=== PATIENT | male | born 1970 | race American Indian/Alaskan Native ===

== ENCOUNTER 2016-09-26 23:11 | Emergency (ER) | payer BC ==
--- NOTE | 2016-09-27 00:10 | ED PDOC ---
Arrival/HPI - General Historian: Patient - History of Present Illness Time/Duration: 4-6 hours Symptom Onset: Sudden Symptom Course: Worsening Context: Home <Sandy Crawford - Last Filed: 09/27/16 02:04> <Fili Gavin - Last Filed: 09/28/16 04:44> - General Time Seen by Provider: 09/26/16 23:55 - History of Present Illness Narrative History of Present Illness (Text): 09/27/16 00:08 46 year old male with no significant past medical history presents for left foot trauma that occurred about 7 hours ago. Patient states that a bunch of people fell on his foot. He was able to walk on foot at first, but now is unable to bear weight on foot. Patient also complains of slight swelling in the foot. (Sandy Crawford) Past Medical History - Provider Review Nursing Documentation Reviewed: Yes - Travel History Have you recently traveled outside [place] w/in the past 3 mons?: No <Sandy Crawford - Last Filed: 09/27/16 02:04> Family/Social History - Physician Review Nursing Documentation Reviewed: Yes Family/Social History: Unknown Family HX <Sandy Crawford - Last Filed: 09/27/16 02:04> Allergies/Home Meds <Sandy Crawford - Last Filed: 09/27/16 02:04> <Fili Gavin - Last Filed: 09/28/16 04:44> Allergies/Adverse Reactions: Allergies shellfish derived Allergy (Verified 09/27/16 00:06) ANAPHYLAXIS Review of Systems - Review of Systems Constitutional: Normal. absent: Fatigue, Fevers Eyes: Normal. absent: Vision Changes ENT: Normal. absent: Hearing Changes, Sore Throat, Rhinorrhea Respiratory: Normal. absent: SOB, Cough, Sputum, Wheezing Cardiovascular: Normal. absent: Chest Pain, Edema, Calf Pain Gastrointestinal: Normal. absent: Abdominal Pain, Constipation, Diarrhea, Nausea, Vomiting Genitourinary Male: Normal. absent: Dysuria, Frequency Musculoskeletal: Arthralgias (left foot pain ). absent: Back Pain Skin: Normal. absent: Rash, Pruritis, Skin Lesions, Laceration Neurological: Normal. absent: Headache, Dizziness Endocrine: Normal. absent: Diaphoresis, Polyuria Hemo/Lymphatic: Normal. absent: Adenopathy Psychiatric: Normal. absent: Anxiety, Depression <Sandy Crawford - Last Filed: 09/27/16 02:04> Physical Exam Appearance: Positive for: Well-Appearing, Non-Toxic, Comfortable Pain Distress: Mild Mental Status: Positive for: Alert and Oriented X 3 - Systems Exam Head: Present: Atraumatic, Normocephalic Mouth: Present: Moist Mucous Membranes Respiratory/Chest: Present: Clear to Auscultation, Good Air Exchange. No: Respiratory Distress, Accessory Muscle Use, Wheezes, Rales, Rhonchi Cardiovascular: Present: Regular Rate and Rhythm, Normal S1, S2. No: Murmurs, Rub, Gallop, Muffled Abdomen: Present: Normal Bowel Sounds. No: Tenderness, Distention, Peritoneal Signs Lower Extremity: Present: NORMAL PULSES, Other (left foot pain on medial aspect of foot. Pain with inversion of foot. ). No: Edema, CALF TENDERNESS, Normal ROM Neurological: Present: GCS=15 Skin: Present: Warm, Dry, Normal Color. No: Rashes Psychiatric: Present: Alert, Oriented x 3, Normal Insight, Normal Concentration <Sandy Crawford - Last Filed: 09/27/16 02:04> Medical Decision Making <Sandy Crawford - Last Filed: 09/27/16 02:04> <Fili Gavin - Last Filed: 09/28/16 04:44> ED Course and Treatment: 09/27/16 00:11 46 y/o male presents for L foot pain after trauma. Will check left foot and left ankle xray Patient will get toradol for pain 09/27/16 02:04 Patient eloped. Refused pain medication. 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 Pt, with no significant past medical history , presented s/p left foot trauma 7 hours [employer]. Pt states a few people fell on to his left foot. Aware and agree with HPI, clinical findings, plan, and management. Plan: -- XR Left Ankle -- XR Left Foot -- Toradol -- Reassess and disposition (Fili Gavin) - Medication Orders Current Medication Orders: Discontinued Medications Ketorolac Tromethamine (Toradol) 30 mg IM STAT STA Stop: 09/27/16 00:08 Last Admin: 09/27/16 01:35 Dose: Not Given Non-Admin Reason: Patient Refused - PA / VEST BUSHELER / Resident Statement / has reviewed & agrees with the documentation as recorded. / has examined the patient and agrees with the treatment plan. <Fili Gavin - Last Filed: 09/28/16 04:44> Disposition/Present on Arrival - Present on Arrival Any Indicators Present on Arrival: No - Disposition Have Diagnosis and Disposition been Completed?: Yes Disposition Time: 02:05 Patient Plan: Other <Sandy Crawford - Last Filed: 09/27/16 02:04> <Fili Gavin - Last Filed: 09/28/16 04:44> - Disposition Diagnosis: Foot pain Disposition: ELOPEMENT - ER ONLY Condition: STABLE Forms: [facility] (Serbian)
[2016-09-27 01:39] VITALS: BMI 27.3
== END 2016-09-27 02:12 | disposition left against medical advice (07) ==
LOC: MERGE 23:11 → ED 23:11
DX: M79.672 Pain in left foot (principal)